=== PATIENT | female | born 1975 | race Caucasian/White ===

== ENCOUNTER 2017-01-31 05:13 | Emergency (ER) | payer OTHER ==
[~2017-01-31] VITALS: Ht 167.6 cm; Wt 72.6 kg
[~2017-01-31 05:13] MED LIST: ANAPROX DS550 MG PO; BACTRIM DS 8001 TA1 PO; CLARITIN10 MG PO; MEDROL DOSEPAK4 MG PO; MUCOUS RELIEF; NAPROSYN500 MG PO; PROVENTIL0.09 MG/AC IH; ROBITUSSIN AC,G30 ML PO; TRAMADOL HCL50 MG PO; ZITHROMAX Z PA250 MG PO
[2017-01-31] MEDS ORDERED: PREDNISONE20 M1 PO (05:55)
[2017-01-31] MEDS ORDERED: ZITHROMAX250 MG PO (05:55)
[2017-01-31] MEDS ORDERED: FLONASE ALLERG9.9 ML NAS (05:55)
[2017-01-31] MEDS ORDERED: DUONEB 3 MG/3 ML3 M1 INH (06:11)
[2017-01-31] MEDS ORDERED: ROBITUSSIN AC 110 ML PO (06:11)
== END 2017-01-31 06:44 | disposition home or self-care (01) ==
LOC: ED 05:13
DX: J20.9 Acute bronchitis, unspecified (principal); J01.90 Acute sinusitis, unspecified; F17.200 Nicotine dependence, unspecified, uncomplicated

== ENCOUNTER 2017-08-28 09:05 | Emergency (ER) | payer OTHER ==
[~2017-08-28] VITALS: Ht 167.6 cm; Wt 83.0 kg
[~2017-08-28 09:05] MED LIST changes: +DUONEB 3 MG/3 ML3 M1 INH; +FLONASE ALLERG9.9 ML NAS; +PREDNISONE20 M1 PO; +ROBITUSSIN AC 110 ML PO; +ZITHROMAX250 MG PO
[2017-08-28 09:30] LABS: BILIRUBIN NEGATIVE (NEGATIVE); BLOOD 3+ (NEGATIVE); CLARITY CLOUDY (CLEAR); COLOR YELLOW (YELLOW); GLUCOSE NEGATIVE (NEGATIVE); KETONE TRACE (NEGATIVE); LEUKO ESTERASE NEGATIVE (NEGATIVE); NITRITE NEGATIVE (NEGATIVE); SPECIFIC GRAVITY 1.025 (1.005-1.030); UROBILINOGEN 0.2 E.U./dl (0.2-1.0)
[2017-08-28 09:38] LABS: EPITHELIAL CELLS 16-20; MUCOUS 3+; RBC 51-100 rbc/hpf (0-2)
[2017-08-28 10:03] LABS: BASO # 0.1 10*3/uL (0.0-0.1); EOS # 0.1 10*3/uL (0.0-0.4); EOS % 1.2 % (1.0-4.0); HEMATOCRIT 41.7 % (37.0-47.0); HEMOGLOBIN 13.5 g/dl (12.0-16.0); LYMPH # 1.3 10*3/uL (1.3-4.4); LYMPH % 26.3 % (27.0-41.0); MEAN CELL VOLUME 90.8 fl (81.0-99.0); MEAN CORPUSCULAR HGB 29.4 pg (27.0-31.0); MEAN CORPUSCULAR HGB CONC 32.4 g/dl (33.0-37.0); MEAN PLATELET VOLUME 9.6 fl (9.6-12.3); MONO # 0.7 10*3/uL (0.1-1.0); MONO % 14.6 % (3.0-9.0); NEUT # 2.7 10*3/uL (2.3-7.9); NEUT % 56.5 % (47.0-73.0); PLATELET COUNT AUTOMATED 257 10*3/uL (130-400); RED BLOOD COUNT 4.59 10*6/uL (4.10-5.10); RED CELL DISTRI WIDTH 14.6 % (0-14.5); WHITE BLOOD COUNT 4.9 10*3/uL (4.8-10.8)
[2017-08-28 10:15] LABS: BUN 8 mg/dl (7-24); CHLORIDE 105 mmol/L (98-107); CREATININE 0.87 mg/dL (0.55-1.02); POTASSIUM 4.7 mmol/L (3.5-5.1); SODIUM 137 mmol/L (136-145)
[2017-08-28] MEDS ORDERED: TAMIFLU 75MG CA75 MG PO (10:58)
[2017-08-28] MEDS ORDERED: SEPTDS PO (10:58)
== END 2017-08-28 11:10 | disposition home or self-care (01) ==
LOC: ED 09:05
PROVIDERS: Emergency Medicine
DX: R31.9 Hematuria, unspecified (principal); N39.0 Urinary tract infection, site not specified; J11.1 Influenza due to unidentified influenza virus with other respiratory manifestations; Z79.899 Other long term (current) drug therapy

== ENCOUNTER 2018-09-26 20:27 | Emergency (ER) | payer OTHER ==
[~2018-09-26] VITALS: Ht 165.1 cm; Wt 79.4 kg
[~2018-09-26 20:27] MED LIST changes: +SEPTDS PO; +TAMIFLU 75MG CA75 MG PO
[2018-09-26 20:47] LABS: BILIRUBIN NEGATIVE (NEGATIVE); BLOOD NEGATIVE (NEGATIVE); CLARITY CLEAR (CLEAR); COLOR YELLOW (YELLOW); GLUCOSE NEGATIVE (NEGATIVE); KETONE TRACE (NEGATIVE); LEUKO ESTERASE NEGATIVE (NEGATIVE); NITRITE NEGATIVE (NEGATIVE); SPECIFIC GRAVITY 1.025 (1.005-1.030)
[2018-09-26 20:54] LABS: BACTERIA 1+; MUCOUS 2+
[2018-09-26] MEDS ORDERED: TESSALON PERLE100 MG PO (21:31)
[2018-09-26] MEDS ORDERED: PREDNISONE50 MG PO (21:31)
== END 2018-09-26 21:55 | disposition home or self-care (01) ==
LOC: ED 20:27
PROVIDERS: Student in an Organized Health Care Education/Training Program
DX: J40 Bronchitis, not specified as acute or chronic (principal); R35.0 Frequency of micturition; R39.11 Hesitancy of micturition; R30.0 Dysuria; F17.200 Nicotine dependence, unspecified, uncomplicated

== ENCOUNTER 2018-10-06 13:36 | Inpatient (IN) | payer OTHER ==
[~2018-10-06] VITALS: Ht 167.6 cm; Wt 84.4 kg
--- NOTE | ~2018-10-06 | EKG ---
[place], [place] ELECTROCARDIOGRAM REPORT NAME: HARINDER COOPER UNIT #: [id number] ROOM: 412 DOCTOR: DERREK DRAFT REPORT BIRTHDATE: [birth year] [facility] Test Date: 2018-10-06 Test Time: 15:25:52 Pat Name: HARINDER COOPER Department: Room: 412 Gender: F Assurance Manager Insurance: Randall Anderson : 1975 Requested By: NIGHAT BENNETT PA-C Order Number: [id number] Reading MD: Francisca Clements MD Measurements Intervals [place] Rate: 79 P: 57 MA: 153 QRS: 24 QRSD: 74 T: 28 QT: 366 QTc: 420 Interpretive Statements Sinus rhythm Probable left atrial enlargement Electronically Signed On 10-07-2018 13:13:01 PDT by Francisca Clements MD CM:EKGRPT:ELECTROCARDIOGRAM REPORT [id number] NIHGAT BENNETT PA-C EPIPHANY DRAFT REPORT NIGHAT BENNETT PA-C
[~2018-10-06 13:36] MED LIST changes: +PREDNISONE50 MG PO; +TESSALON PERLE100 MG PO
[2018-10-06 13:40] VITALS: BP 141/77
[2018-10-06 14:21] LABS: BASO # 0.1 10*3/uL (0.0-0.1); BASO % 0.5 % (0.0-1.0); EOS # 0.4 10*3/uL (0.0-0.4); EOS % 2.4 % (1.0-4.0); HEMATOCRIT 38.5 % (37.0-47.0); HEMOGLOBIN 12.7 g/dl (12.0-16.0); LYMPH # 2.8 10*3/uL (1.3-4.4); LYMPH % 18.2 % (27.0-41.0); MEAN CELL VOLUME 91.4 fl (81.0-99.0); MEAN CORPUSCULAR HGB 30.2 pg (27.0-31.0); MEAN PLATELET VOLUME 8.8 fl (9.6-12.3); MONO % 6.2 % (3.0-9.0); NEUT % 71.5 % (47.0-73.0); PLATELET COUNT AUTOMATED 371 10*3/uL (130-400); RED BLOOD COUNT 4.21 10*6/uL (4.10-5.10); RED CELL DISTRI WIDTH 14.4 % (0-14.5); WHITE BLOOD COUNT 15.3 10*3/uL (4.8-10.8)
[2018-10-06 14:41] LABS: ALBUMIN 3.4 gm/dl (3.1-4.5); ALKALINE PHOSPHATASE 80 U/L (45-117); BUN 13 mg/dl (7-24); CHLORIDE 107 mmol/L (98-107); CREATININE 0.75 mg/dL (0.55-1.02); POTASSIUM 4.1 mmol/L (3.5-5.1); SGOT/AST 31 IU/L (3-35); SGPT/ALT 51 U/L (12-78); SODIUM 139 mmol/L (136-145); TOTAL PROTEIN 7.2 gm/dL (6.4-8.2)
[2018-10-06 15:36] VITALS: BP 130/70
[2018-10-06 15:57] LABS: TROPONIN I < 0.015 ng/ml (<0.045)
--- NOTE | 2018-10-06 16:00 | NUR ---
A 43, admitted to , under the services of HAYES Denton DO with a diagnosis of PNEUMONIA. Chief complaint is SHORTNESS OF BREATH AND COUGH. Patient arrived via stretcher from ER. Monitor applied. Initial assessment completed. Vital signs taken and recorded. HAYES DENTON DO notified of admission to the unit. Orders received. See assessment for past medical history, medications and allergies. Patient and/or family oriented to unit. [facility] visitation policy reviewed. Clothing/patient valuable form completed. RAMANA BARRAGAN
[2018-10-06 16:15] VITALS: BP 117/63
[2018-10-06 16:27] LABS: INTERNATIONAL NORM RATIO 0.9 (2.0-3.5)
--- NOTE | 2018-10-06 19:45 | NUR ---
DR. GUPTA CALLED D/T PATIENT REQUESTING PRN PAIN MEDICATIONS.
[2018-10-06 20:00] VITALS: BP 119/85
--- NOTE | 2018-10-06 20:05 | NUR ---
PRN PAIN MEDICATIONS GIVEN. NO SIGNS OR SYMPTOMS OF DISTRESS. COUGH MEDICATIONS GIVEN EARLY AT PATIENT'S REQUEST.
--- NOTE | 2018-10-06 20:45 | NUR ---
PATIENT REPORTS PRN PAIN AND SCHEDULED COUGH MEDICATION EFFECTIVE. NO SIGNS OR SYMPTOMS OF DISTRESS.
[2018-10-07] VITALS: BP 119/49
--- NOTE | 2018-10-07 05:20 | NUR ---
PRN PAIN MEDICATION REQUESTED.
--- NOTE | 2018-10-07 06:20 | NUR ---
CHART CHECK COMPLETED.
[2018-10-07 07:15] LABS: HEMATOCRIT 36.6 % (37.0-47.0); MEAN CELL VOLUME 92.2 fl (81.0-99.0); MEAN CORPUSCULAR HGB 30.2 pg (27.0-31.0); MEAN CORPUSCULAR HGB CONC 32.8 g/dl (33.0-37.0); PLATELET COUNT AUTOMATED 364 10*3/uL (130-400); RED BLOOD COUNT 3.97 10*6/uL (4.10-5.10); RED CELL DISTRI WIDTH 14.5 % (0-14.5); WHITE BLOOD COUNT 18.8 10*3/uL (4.8-10.8)
[2018-10-07 07:27] LABS: PHOSPHOROUS 1.3 mg/dL (2.5-4.9)
[2018-10-07 07:30] LABS: ALBUMIN 3.1 gm/dl (3.1-4.5); ALKALINE PHOSPHATASE 68 U/L (45-117); BUN 6 mg/dl (7-24); CHLORIDE 112 mmol/L (98-107); CHOLESTEROL 174 mg/dL (<200); CREATININE 0.89 mg/dL (0.55-1.02); HDL CHOLESTEROL 66 mg/dl (40-60); LDL CHOLESTEROL 94 mg/dL (9-159); POTASSIUM 3.8 mmol/L (3.5-5.1); SGOT/AST 38 IU/L (3-35); SGPT/ALT 67 U/L (12-78); SODIUM 140 mmol/L (136-145); TOTAL PROTEIN 6.8 gm/dL (6.4-8.2); TRIGLYCERIDES 68 mg/dl (<150); VLDL CHOLESTEROL 14 mg/dL (6-40)
[2018-10-07 07:35] LABS: PLATELET SUFFICIENCY NORMAL (NORMAL); TOTAL CELLS COUNTED 100 #CELLS; VACUOLATION OF NEUTROPHILS SLIGHT
[2018-10-07 08:00] VITALS: BP 114/76
--- NOTE | 2018-10-07 08:05 | NUR ---
PT WAS INSTRUCTED ON FLUTTER. PT TOLERATED WELL. PT CAN DO ON HER OWN
[2018-10-07 12:00] VITALS: BP 123/66
--- NOTE | 2018-10-07 15:23 | NUR ---
PT MEDICATED WITH PO MOTRIN PER PRN ORDER FOR C/O HEADACHE. WILL MONITOR EFFECTIVENESS.
[2018-10-07 16:00] VITALS: BP 108/65
--- NOTE | 2018-10-07 16:53 | NUR ---
MOTRIN EFFECTIVE PER PT. WILL CONTINUE TO MONITOR.
[2018-10-07 18:00] VITALS: BP 108/65
[2018-10-07 20:00] VITALS: BP 100/58
--- NOTE | 2018-10-07 21:47 | NUR ---
NORCO GIVEN PER ORDER FOR COMPLAINTS OF GENERALIZED PAIN/ACHES. RESTORIL GIVEN FOR COMPLAINTS OF INSOMNIA. WILL CONTINUE TO MONITOR AND REASSESS. CALL LIGHT IN REACH.
--- NOTE | 2018-10-07 22:50 | NUR ---
NORCO EFFECTIVE FOR PAIN, RESTORIL EFFECTIVE FOR INSOMNIA. PT SLEEPING COMFORTABLY WITH CALL LIGHT IN REACH.
[2018-10-08] VITALS: BP 95/42
--- NOTE | 2018-10-08 00:07 | NUR ---
24 HR chart check completed.
[2018-10-08 07:08] LABS: HEMATOCRIT 35.1 % (37.0-47.0); HEMOGLOBIN 11.1 g/dl (12.0-16.0); MEAN CELL VOLUME 95.1 fl (81.0-99.0); MEAN CORPUSCULAR HGB 30.1 pg (27.0-31.0); MEAN CORPUSCULAR HGB CONC 31.6 g/dl (33.0-37.0); MEAN PLATELET VOLUME 9.4 fl (9.6-12.3); PLATELET COUNT AUTOMATED 373 10*3/uL (130-400); RED BLOOD COUNT 3.69 10*6/uL (4.10-5.10)
[2018-10-08 07:30] LABS: CHLORIDE 108 mmol/L (98-107); POTASSIUM 4.7 mmol/L (3.5-5.1); SODIUM 140 mmol/L (136-145)
[2018-10-08 07:36] LABS: BUN 8 mg/dl (7-24); CREATININE 0.73 mg/dL (0.55-1.02); PHOSPHOROUS 3.5 mg/dL (2.5-4.9)
[2018-10-08 07:59] LABS: PLATELET SUFFICIENCY NORMAL (NORMAL); TOTAL CELLS COUNTED 100 #CELLS
[2018-10-08 08:00] VITALS: BP 108/53
--- NOTE | 2018-10-08 09:00 | NUR ---
Lung Splitter in to talk to patient. Patient states lives at home with children. There are few steps in the home. Physician: dominique gong [facility]acy: [facility] Home health services: none Patient's level of ADLs: INDEPENDENT Patient has working utilities: all working DME: none Follow-up physician's appointment after d/c: will be made by [facility] nurse director upon discharge Does patient want to access PORTAL?: no Discharge plan discussed with patient, patient lives at home with family, she i is independent in adls and ambulation, patient states she will be going home when able and denies any home needs. ARLIN SUGGS
[2018-10-08] MEDS ORDERED: ZITHROMAX500 MG PO (09:09)
[2018-10-08] MEDS ORDERED: PREDNISONE10 MG PO (09:09)
--- NOTE | 2018-10-08 10:17 | NUR ---
PT DISCHARGED AND AMBULATED OFF THE FLOOR AT THIS TIME. HEPLOCK AND CORPORATE ATTORNEY DC'D. PRESCRIPTIONS DISCUSSED WELL FOLLOWING UP WITH PCP.
== END 2018-10-08 10:17 | disposition home or self-care (01) | DRG 871 ==
LOC: ED 13:36 → EDHOLD 15:33 → 4E 15:54
PROVIDERS: Internal Medicine; Physician Assistant; ADMIT Internal Medicine
DX: A41.9 Sepsis, unspecified organism (principal); J18.1 Lobar pneumonia, unspecified organism; D72.810 Lymphocytopenia; R73.9 Hyperglycemia, unspecified; Z71.6 Tobacco abuse counseling; E66.3 Overweight; F17.210 Nicotine dependence, cigarettes, uncomplicated; Z88.0 Allergy status to penicillin; Z72.89 Other problems related to lifestyle; Z98.891 History of uterine scar from previous surgery; Z82.49 Family history of ischemic heart disease and other diseases of the circulatory system; Z68.29 Body mass index [BMI] 29.0-29.9, adult

== ENCOUNTER 2019-01-10 00:59 | Emergency (ER) | payer OTHER ==
[~2019-01-10] VITALS: Ht 165.1 cm; Wt 81.6 kg
[~2019-01-10 00:59] MED LIST changes: +PREDNISONE10 MG PO; +ZITHROMAX500 MG PO
== END 2019-01-10 03:13 | disposition home or self-care (01) ==
LOC: ED 00:59
DX: F41.1 Generalized anxiety disorder (principal); F43.0 Acute stress reaction; F17.210 Nicotine dependence, cigarettes, uncomplicated; Z88.0 Allergy status to penicillin; Z79.2 Long term (current) use of antibiotics; Z79.899 Other long term (current) drug therapy

== ENCOUNTER 2019-05-04 09:20 | Emergency (ER) | payer OTHER ==
[~2019-05-04] VITALS: Ht 165.1 cm; Wt 81.6 kg
[2019-05-04] MEDS ORDERED: PREDNISONE50 MG PO (11:18)
[2019-05-04] MEDS ORDERED: ZYRTEC10 MG PO (11:18)
[2019-05-04] MEDS ORDERED: TESSALON PERLE100 M1 PO (11:18)
== END 2019-05-04 11:26 | disposition home or self-care (01) ==
LOC: ED 09:20
DX: B34.9 Viral infection, unspecified (principal); F17.200 Nicotine dependence, unspecified, uncomplicated; Z88.0 Allergy status to penicillin

== ENCOUNTER 2019-05-09 13:40 | Emergency (ER) | payer OTHER ==
[~2019-05-09] VITALS: Ht 167.6 cm; Wt 81.6 kg
[~2019-05-09 13:40] MED LIST changes: +TESSALON PERLE100 M1 PO; +ZYRTEC10 MG PO
[2019-05-09] MEDS ORDERED: ZITHROMAX250 MG PO (16:04)
[2019-05-09] MEDS ORDERED: ROBITUSSIN DM 105 ML PO (16:04)
== END 2019-05-09 16:06 | disposition home or self-care (01) ==
LOC: ED 13:40
DX: J20.9 Acute bronchitis, unspecified (principal); Z88.0 Allergy status to penicillin; Z79.899 Other long term (current) drug therapy; Z87.891 Personal history of nicotine dependence

== ENCOUNTER 2019-12-27 19:46 | Emergency (ER) | payer OTHER ==
[~2019-12-27] VITALS: Ht 165.1 cm; Wt 90.7 kg
[~2019-12-27 19:46] MED LIST changes: +ROBITUSSIN DM 105 ML PO
[2019-12-27 20:36] LABS: BASO # 0.1 10*3/uL (0.0-0.1); BASO % 0.7 % (0.0-1.0); EOS # 0.3 10*3/uL (0.0-0.4); EOS % 2.2 % (1.0-4.0); HEMATOCRIT 39.1 % (37.0-47.0); LYMPH % 24.5 % (27.0-41.0); MEAN CELL VOLUME 89.1 fl (81.0-99.0); MEAN CORPUSCULAR HGB 29.2 pg (27.0-31.0); MEAN CORPUSCULAR HGB CONC 32.7 g/dl (33.0-37.0); MEAN PLATELET VOLUME 9.3 fl (9.6-12.3); MONO # 0.8 10*3/uL (0.1-1.0); MONO % 6.7 % (3.0-9.0); NEUT % 65.7 % (47.0-73.0); PLATELET COUNT AUTOMATED 361 10*3/uL (130-400); RED BLOOD COUNT 4.39 10*6/uL (4.10-5.10); RED CELL DISTRI WIDTH 13.2 % (0-14.5); WHITE BLOOD COUNT 12.2 10*3/uL (4.8-10.8)
[2019-12-27 20:51] LABS: ACT PARTIAL THROMBO TIME 28.9 SECONDS (20.0-32.1)
[2019-12-27 20:52] LABS: ALBUMIN 3.6 gm/dl (3.1-4.5); ALKALINE PHOSPHATASE 78 U/L (45-117); BUN 13 mg/dl (7-24); CHLORIDE 108 mmol/L (98-107); CREATININE 0.89 mg/dL (0.55-1.02); POTASSIUM 4.1 mmol/L (3.5-5.1); SGOT/AST 16 IU/L (3-35); SGPT/ALT 30 U/L (12-78); SODIUM 138 mmol/L (136-145); TOTAL PROTEIN 7.5 gm/dL (6.4-8.2)
[2019-12-27 20:53] LABS: TROPONIN I < 0.015 ng/ml (<0.045)
[2019-12-27] MEDS ORDERED: ANAPROX DS550 MG PO (21:28)
== END 2019-12-27 21:50 | disposition home or self-care (01) ==
LOC: ED 19:46
PROVIDERS: Emergency Medicine Emergency Medical Services
DX: M94.0 Chondrocostal junction syndrome [Tietze] (principal); F17.200 Nicotine dependence, unspecified, uncomplicated; Z88.0 Allergy status to penicillin; Z79.899 Other long term (current) drug therapy

== ENCOUNTER 2021-11-18 16:35 | Emergency (ER) | payer OTHER ==
[~2021-11-18] VITALS: Wt 72.6 kg
[2021-11-18 17:20] LABS: BASO # 0.1 10*3/uL (0.0-0.1); BASO % 1.1 % (0.0-1.0); EOS # 0.1 10*3/uL (0.0-0.4); EOS % 1.9 % (1.0-4.0); HEMATOCRIT 40.3 % (37.0-47.0); LYMPH # 1.4 10*3/uL (1.3-4.4); LYMPH % 30.1 % (27.0-41.0); MEAN CELL VOLUME 92.9 fl (81.0-99.0); MEAN CORPUSCULAR HGB 29.5 pg (27.0-31.0); MEAN CORPUSCULAR HGB CONC 31.8 g/dl (33.0-37.0); MEAN PLATELET VOLUME 9.4 fl (9.6-12.3); MONO # 0.9 10*3/uL (0.1-1.0); NEUT # 2.2 10*3/uL (2.3-7.9); NEUT % 46.5 % (47.0-73.0); PLATELET COUNT AUTOMATED 298 10*3/uL (130-400); RED BLOOD COUNT 4.34 10*6/uL (4.10-5.10); WHITE BLOOD COUNT 4.7 10*3/uL (4.8-10.8)
[2021-11-18 17:27] LABS: BILIRUBIN Negative (Negative); BLOOD 2+ (Negative); CLARITY Cloudy (Clear); COLOR Yellow (Yellow); GLUCOSE Negative (Negative); KETONE 1+ (Negative); LEUKO ESTERASE Negative (Negative); NITRITE Negative (Negative); PH 5.5 (4.5-8.0); SPECIFIC GRAVITY >= 1.030 (1.001-1.030)
[2021-11-18 17:32] LABS: ACT PARTIAL THROMBO TIME 31.2 SECONDS (20.0-32.1)
[2021-11-18 17:40] LABS: ALKALINE PHOSPHATASE 70 U/L (45-117); BUN 7 mg/dl (7-24); CHLORIDE 110 mmol/L (98-107); CREATININE 0.81 mg/dL (0.55-1.02); LIPASE 222 U/L (73-393); POTASSIUM 3.9 mmol/L (3.5-5.1); SGOT/AST 13 IU/L (3-35); SGPT/ALT 18 U/L (12-78); SODIUM 140 mmol/L (136-145); TOTAL PROTEIN 6.6 gm/dL (6.4-8.2)
[2021-11-18 18:08] LABS: CALCIUM OXALATE CRYSTALS 2+; WBC 0-2 wbc/hpf (0-5)
== END 2021-11-18 21:55 | disposition home or self-care (01) ==
LOC: ED 16:35
PROVIDERS: Emergency Medicine
DX: B34.9 Viral infection, unspecified (principal); Z88.0 Allergy status to penicillin